=== PATIENT | male | born 1980 | race African-American/Black ===

== ENCOUNTER 2020-03-21 16:40 | Observation (INO) | payer BC ==
[~2020-03-21] VITALS: Ht 180.3 cm; Wt 59.4 kg
[2020-03-21] MEDS ORDERED: FENTANYL 25 MCG/HR PATCH TD SCH (17:30)
[2020-03-21] MEDS ORDERED: ACETAMINOPHEN 325 MG TAB PO PRN ×2 (17:30→19:45)
[2020-03-21] MEDS ORDERED: HYDROMORPHONE 1 MG/1 ML AMP ONE (17:39)
[2020-03-21 17:50] LABS: BASOPHILS % (AUTO) 0.5 % (0.0-5.0)
[2020-03-21 17:54] LABS: EOSINOPHILS % (AUTO) 0.3 % (0.0-8.0); LYMPHOCYTES % (AUTO) 15.3 % (21.0-51.0); MEAN CORPUSCULAR HEMOGLOBIN 31.8 pg (27.0-33.0); MEAN CORPUSCULAR HGB CONC 32.9 g/dL (32.0-36.0); MEAN CORPUSCULAR VOLUME 96.7 fL (79-99); MONOCYTES % (AUTO) 14.7 % (3.0-13.0); PLATELET COUNT (AUTO) 270 K/uL (130-400); RED BLOOD CELL COUNT(AUTO) 2.14 MIL/uL (4.50-6.20); WHITE BLOOD COUNT (AUTO) 5.8 K/uL (4.8-10.8)
[2020-03-21 17:57] LABS: CREATININE 1.1 mg/dL (0.5-1.5)
[2020-03-21 17:59] LABS: ALBUMIN 3.2 g/dL (3.5-5.0); BILIRUBIN,TOTAL 0.1 mg/dL (0.2-1.0); TOTAL PROTEIN, SERUM 7.7 g/dL (6.0-8.3)
[2020-03-21 18:00] LABS: HEMATOCRIT 20.7 % (42-54)
[2020-03-21] MEDS ORDERED: HYDROMORPHONE HCL 2 MG/ML VIAL IVP PRN (19:45)
[2020-03-21] MEDS: SODIUM CHLORIDE 0.9% 1000ML 1,000 ML IV SCH (19:51)
[2020-03-21 20:00] VITALS: BP 113/64
[2020-03-21] MEDS ORDERED: HYDROMORPHONE HCL 2 MG TAB PO PRN (20:00)
[2020-03-21] MEDS ORDERED: NON-FORMULARY MEDICATION 1 EACH (Fentanyl 1 EACH) TD SCH (20:00)
[2020-03-21] MEDS ORDERED: HYDR8TAB2 PO (20:01)
[2020-03-21] MEDS ORDERED: FENT-77 TD (20:01)
--- NOTE | 2020-03-21 22:13 | NUR ---
patient refuses to take dressing off the scrotum and take a picture. will continue to insist in the am.
[2020-03-21 23:58] VITALS: BP 110/60
[2020-03-22] MEDS: HYDROMORPHONE 1 MG/1 ML AMP IVP PRN ×2 (01:02→05:05)
[2020-03-22 03:30] VITALS: BP 108/63
[2020-03-22] MEDS: SODIUM CHLORIDE 0.9% 1000ML 1,000 ML IV SCH (04:13)
--- NOTE | 2020-03-22 06:41 | NUR ---
administered 1 unit of blood from 21:40 to 01:20 am administered 1 unit of blood from 01:30 am to 03:50 am almost done administering 3rd unit of blood (started at 05:10 am) patient alert and oriented x 3. stable vital signs. no allergic reaction to blood.
[2020-03-22 08:00] VITALS: BP 119/61
[2020-03-22 08:20] LABS: HEMATOCRIT 27.5 % (42-54); MEAN CORPUSCULAR HEMOGLOBIN 29.9 pg (27.0-33.0); MEAN CORPUSCULAR HGB CONC 32.7 g/dL (32.0-36.0); MEAN CORPUSCULAR VOLUME 91.4 fL (79-99); PLATELET COUNT (AUTO) 224 K/uL (130-400); RED BLOOD CELL COUNT(AUTO) 3.01 MIL/uL (4.50-6.20); RED CELL DISTRIBUTION WIDTH 16.5 % (11.0-15.5); WHITE BLOOD COUNT (AUTO) 5.4 K/uL (4.8-10.8)
[2020-03-22 08:38] LABS: ALBUMIN 2.6 g/dL (3.5-5.0); BILIRUBIN,TOTAL 0.2 mg/dL (0.2-1.0); POTASSIUM 4.1 mmol/L (3.5-5.1); TOTAL PROTEIN, SERUM 6.6 g/dL (6.0-8.3)
[2020-03-22 09:04] LABS: BAND NEUTROPHILS % (MANUAL) 5 % (0-2); LYMPHOCYTES % (MANUAL) 16 % (22-44); MAN.DIFF COMMENT-IMPRESSION MANUAL DIFFERENTIAL; MONOCYTES % (MANUAL) 11 % (2-9); PLATELET MORPHOLOGY COMMENT ADEQUATE; SEGMENTED NEUTROPHILS % 68 % (40-70)
--- NOTE | 2020-03-22 11:07 | NUR ---
Notified Dr. Caban of Hgb 9.0, Hct 27.5, platelet count of 224. Per Dr. Caban, patient can resume home meds and follow up in his office on Wednesday, 03/15/20.1 Received order to discharge.
--- NOTE | 2020-03-22 11:59 | NUR ---
Discharge instructions reviewed, patient notified to continue home medications per Dr. Harvey's discharge order. Printed education for anemia and wound care provided to patient. Patient verbalized understanding of discharge, medication and wound care instructions provided. PIV to RAC removed, bleeding controlled, and dressing applied. Patient escorted to emergency entrance via wheelchair, where spouse received to transport home.
--- NOTE | 2020-03-22 12:21 | NUR ---
ELIECER NOTE/IA PATIENT DISCHARGED HOME, NO NEEDS VERBALIZED BY NURSING STAFF. Addendum: 03/22/20 at 1221 by SAHIL TESFAYE RN CM Amended: Links added.
== END 2020-03-22 12:05 | disposition home or self-care (01) ==
LOC: EDH 16:40 → EDHIP 17:05 → 3CH 19:37
PROVIDERS: ADMIT Internal Medicine Hematology & Oncology; ATTEND Internal Medicine Hematology & Oncology
DX: D61.810 Antineoplastic chemotherapy induced pancytopenia (principal); C60.9 Malignant neoplasm of penis, unspecified; N49.2 Inflammatory disorders of scrotum
CPT/HCPCS: 36415 ×2; 36430 ×2; 80053 ×2; 85025 ×2; 86850; 86900; 86901; 86922; 96374; 96376; 99283; G0378 ×8; J1170 ×4; P9016 ×3

== ENCOUNTER 2020-03-24 09:46 | Emergency (ER) | payer BC ==
[~2020-03-24 09:46] MED LIST: FENT-77 TD; HYDR8TAB2 PO
[2020-03-24] MEDS ORDERED: MECLIZINE HCL 25 MG TABLET ONE (10:18)
[2020-03-24] MEDS ORDERED: ONDANSETRON HCL 4 MG/2 ML VIAL ONE (10:19)
[2020-03-24] MEDS ORDERED: SODIUM CHLORIDE 0.9% 1000ML 1,000 ML IV ONE (10:19)
[2020-03-24] MEDS ORDERED: MORPHINE SULFATE 2 MG/ML 1ML SYG ONE (10:19)
[2020-03-24 10:30] LABS: BASOPHILS % (AUTO) 0.4 % (0.0-5.0); EOSINOPHILS % (AUTO) 0.1 % (0.0-8.0); HEMATOCRIT 36.1 % (42-54); LYMPHOCYTES % (AUTO) 11.6 % (21.0-51.0); MEAN CORPUSCULAR HEMOGLOBIN 29.7 pg (27.0-33.0); MEAN CORPUSCULAR HGB CONC 32.7 g/dL (32.0-36.0); MEAN CORPUSCULAR VOLUME 90.9 fL (79-99); MONOCYTES % (AUTO) 12.4 % (3.0-13.0); NEUTROPHILS % (AUTO) 74.2 % (40.0-77.0); PLATELET COUNT (AUTO) 225 K/uL (130-400); RED BLOOD CELL COUNT(AUTO) 3.97 MIL/uL (4.50-6.20); RED CELL DISTRIBUTION WIDTH 16.2 % (11.0-15.5)
[2020-03-24 10:41] LABS: CREATININE 1.1 mg/dL (0.5-1.5); INR 1.17 (0.85-1.15); PARTIAL THROMBOPLASTIN TIME 32.1 SEC (26.3-35.5); POTASSIUM 3.9 mmol/L (3.5-5.1); PROTHROMBIN TIME 12.6 SEC (9.6-11.6)
[2020-03-24 10:45] LABS: ALBUMIN 3.5 g/dL (3.5-5.0); BILIRUBIN,TOTAL 0.3 mg/dL (0.2-1.0); TOTAL PROTEIN, SERUM 8.8 g/dL (6.0-8.3)
[2020-03-24 11:24] LABS: APPEARANCE,URINE Clear (CLEAR); BILIRUBIN,URINE Negative (NEGATIVE); COLOR,URINE Yellow (YELLOW); GLUCOSE, URINE (UA) Negative (NEGATIVE); KETONES,URINE Negative (NEGATIVE); LEUKOCYTE ESTERASE ,URINE Moderate (NEGATIVE); NITRATE,URINE Negative (NEGATIVE); OCCULT BLOOD,URINE Nonhemolyzed Trace (NEGATIVE); PH,URINE 7.5 (5.0-8.0); PROTEIN,URINE POS 1+ mg/dL (NEGATIVE)
[2020-03-24 11:45] LABS: BACTERIA,URINE Few /HPF (None Seen); RBC,URINE 0-1 /HPF (0-1); WBC,URINE 51-100 /HPF (0-1)
[2020-03-24] MEDS ORDERED: CEFTRIAXONE SODIUM 1 GM ONE (11:45)
== END 2020-03-24 13:14 | disposition home or self-care (01) ==
LOC: EDH 09:46
DX: N39.0 Urinary tract infection, site not specified (principal); R42 Dizziness and giddiness; Z87.891 Personal history of nicotine dependence; Z85.49 Personal history of malignant neoplasm of other male genital organs; Z79.899 Other long term (current) drug therapy
CPT/HCPCS: 36415; 70450; 71045; 80053; 81001; 82550; 84484; 85025; 85610; 85730; 87077; 87088; 87186; 93005; 96361; 96374; 96375; 99285; J0696; J2405; J7030

== ENCOUNTER 2020-04-28 09:07 | Emergency (ER) | payer BC ==
[~2020-04-28] VITALS: Ht 180.3 cm; Wt 105.2 kg
[2020-04-28] MEDS ORDERED: HYDROMORPHONE 1 MG/1 ML AMP ONE ×3 (10:02→11:09)
[2020-04-28 10:18] LABS: BASOPHILS % (AUTO) 1.9 % (0.0-5.0); EOSINOPHILS % (AUTO) 1.3 % (0.0-8.0); HEMATOCRIT 24.6 % (42-54); LYMPHOCYTES % (AUTO) 27.4 % (21.0-51.0); MEAN CORPUSCULAR HEMOGLOBIN 30.7 pg (27.0-33.0); MEAN CORPUSCULAR HGB CONC 33.7 g/dL (32.0-36.0); MEAN CORPUSCULAR VOLUME 91.1 fL (79-99); MONOCYTES % (AUTO) 3.8 % (3.0-13.0); NEUTROPHILS % (AUTO) 63.1 % (40.0-77.0); PLATELET COUNT (AUTO) 150 K/uL (130-400); RED CELL DISTRIBUTION WIDTH 14.7 % (11.0-15.5); WHITE BLOOD COUNT (AUTO) 1.6 K/uL (4.8-10.8)
[2020-04-28 10:38] LABS: CREATININE 1.1 mg/dL (0.5-1.5); POTASSIUM 3.3 mmol/L (3.5-5.1)
[2020-04-28 10:43] LABS: ALBUMIN 2.8 g/dL (3.5-5.0); BILIRUBIN,TOTAL 0.3 mg/dL (0.2-1.0); TOTAL PROTEIN, SERUM 6.9 g/dL (6.0-8.3)
[2020-04-28] MEDS ORDERED: SODIUM CHLORIDE 0.9% 1000ML 1,000 ML IV ONE (11:28)
[2020-04-28] MEDS ORDERED: ZOSYN 3.375GM+NS 50ML 50 ML IV ONE (11:33)
[2020-04-28] MEDS ORDERED: VANCOMYCIN 1.5 GM in SODIUM CHLORIDE 0.9% 250 ML IV SCH (12:18)
[2020-04-28] MEDS ORDERED: TBO-FILGRASTIM 480 MCG/0.8 ML ML SQ ONE (14:00)
[2020-04-28] MEDS ORDERED: FENTANYL 75 MCG/HR PATCH TD ONE (14:41)
== END 2020-04-28 15:41 | disposition home or self-care (01) ==
LOC: EDH 09:07
DX: L03.314 Cellulitis of groin (principal); D61.810 Antineoplastic chemotherapy induced pancytopenia; C67.9 Malignant neoplasm of bladder, unspecified
CPT/HCPCS: 36415; 80053; 83605; 85025; 87040 ×2; 96365; 96366; 96367; 96372; 96375; 96376; 99285; J1170 ×3; J1447; J2543; J3370; J7030; J7050

== ENCOUNTER 2020-07-20 11:19 | Emergency (ER) | payer BC ==
[2020-07-20] MEDS ORDERED: HYDROMORPHONE 1 MG/1 ML AMP ONE (11:57)
[2020-07-20 12:20] LABS: BASOPHILS % (AUTO) 0.4 % (0.0-5.0); EOSINOPHILS % (AUTO) 0.9 % (0.0-8.0); HEMATOCRIT 27.5 % (42-54); LYMPHOCYTES % (AUTO) 12.1 % (21.0-51.0); MEAN CORPUSCULAR HEMOGLOBIN 32.4 pg (27.0-33.0); MEAN CORPUSCULAR HGB CONC 33.5 g/dL (32.0-36.0); MEAN CORPUSCULAR VOLUME 96.8 fL (79-99); MONOCYTES % (AUTO) 7.5 % (3.0-13.0); NEUTROPHILS % (AUTO) 78.8 % (40.0-77.0); PLATELET COUNT (AUTO) 242 K/uL (130-400); RED BLOOD CELL COUNT(AUTO) 2.84 MIL/uL (4.50-6.20); RED CELL DISTRIBUTION WIDTH 12.5 % (11.0-15.5); WHITE BLOOD COUNT (AUTO) 7.5 K/uL (4.8-10.8)
[2020-07-20 12:34] LABS: CREATININE 1.1 mg/dL (0.5-1.5); POTASSIUM 3.6 mmol/L (3.5-5.1)
[2020-07-20 12:39] LABS: ALBUMIN 2.9 g/dL (3.5-5.0); BILIRUBIN,TOTAL 0.2 mg/dL (0.2-1.0)
[2020-07-20] MEDS ORDERED: MORPHINE SULFATE 4 MG/1ML SYG ONE (13:03)
== END 2020-07-20 14:18 | disposition home or self-care (01) ==
LOC: EDH 11:19
DX: C80.1 Malignant (primary) neoplasm, unspecified (principal); C79.82 Secondary malignant neoplasm of genital organs; Z87.891 Personal history of nicotine dependence
CPT/HCPCS: 36415; 74176; 80053; 85025; 96374; 96375; 99284; J1170; J2270